=== PATIENT | male | born 1965 | race Caucasian/White ===

== ENCOUNTER → 2018-06-01 | Outpatient (CLI) | payer OTHER ==
--- NOTE | 2018-06-01 17:24 | XR ---
Orbits 3 views. History check for foreign body. FINDINGS: Orbital margins are intact. There is no evidence of radiopaque foreign body. There is normal aeration of the paranasal sinuses. IMPRESSION: Negative exam.
== END | disposition home or self-care (01) ==
LOC: RADXRMAIN 16:30
PROVIDERS: ATTEND Orthopaedic Surgery
DX: Z01.812 Encounter for preprocedural laboratory examination (principal); Z87.821 Personal history of retained foreign body fully removed
CPT/HCPCS: 70030